=== PATIENT | female | born 1975 | race Caucasian/White ===

== ENCOUNTER 2017-01-09 14:53 | Emergency (ER) | payer OTHER ==
[~2017-01-09] VITALS: Ht 167.6 cm; Wt 52.0 kg
[~2017-01-09 14:53] MED LIST: ALLERGY INJECTIONS; ALPR-138 PO; BUDE.5I INH; BUPR-175 PO; CIPR500T2 PO; LORTS PO; PREN0.01 PO
[2017-01-09 14:59] VITALS: BP 118/65; PULSE 91; RESP 18; TEMP 98; O2SAT 100
[2017-01-09] MEDS ORDERED: XANA2TAB2 PO (15:48)
[2017-01-09] MEDS ORDERED: MONT4CHW2 CHEW (15:48)
[2017-01-09] MEDS ORDERED: TOPI25 PO (15:48)
[2017-01-09] MEDS ORDERED: BUPR150CR PO (15:48)
[2017-01-09] MEDS ORDERED: FLUT1SPR5 EACH NARE (15:48)
[2017-01-09] MEDS ORDERED: [UNRECOGNIZED DRUG - CODE] PO (15:48)
[2017-01-09] MEDS ORDERED: SODIUM CHLORIDE 0.9% FLUSH 10 ML FLUSH IV FLUSH PRN (16:30)
--- NOTE | 2017-01-09 16:30 | PD ---
HPI . Abdominal pain Chief Complaint: Abdominal Pain Time Seen by Provider: 16:22 Travel History International Travel<30 days: No Contact w/Intl Traveler<30days: No Traveled to known affect area: No History of Present Illness HPI Patient presents with a chief complaint of abdominal pain. She is complaining with upper abdominal pain. Onset was a year ago. She has not noted any modifying factors. She rates the pain 8/10 and describes it as a bloating sensation. She reports gas. She also reports associated nausea and vomiting. No diarrhea or constipation. No fever. She has seen her PMD for same and the PMD recommended increased fiber in her diet. She reports compliance with that recommendation. PFSH Past Medical History Asthma: Yes Depression: Yes Cancer: No Diabetes: No Hepatitis: No Hiatal Hernia: Yes Medical other: Yes (pt states had pneumonia a couple of times) Respiratory: Yes (asthma) Thyroid Disease: No Tetanus Vaccination: > 5 Years Influenza Vaccination: Yes ?: Not LMP: 12/20/16 : 1 Para: 0 Miscarriage: 0 : 0 Past Surgical History Abdominal Surgery: Yes (right inquinal hernia repair) Oral Surgery: Yes (wisdom teeth removed) Other Surgery: Yes Social History Alcohol Use: No Tobacco Use: No Substance Use: No Allergies-Medications (Allergen,Severity, Reaction): Coded Allergies: No Known Allergies (Verified Adverse Reaction, Unknown, 01/09/17) Reported Meds & Prescriptions Reported Meds & Active Scripts Active Reported Flonase Nasal Marathon (Fluticasone Nasal Marathon) 50 Mcg/Act [place] 50 Mcg EACH NARE BID Singulair (Montelukast Sodium) 4 Mg Chew 4 Mg CHEW HS Cotempla Xr-Odt (Methylphenidate) 25.9 Mg Tab.rap.bp 25.9 Mg PO DAILY Wellbutrin SR 12 HR (Bupropion HCl) 150 Mg Tab 300 Mg PO Q12HR Xanax (Alprazolam) 2 Mg Tab 2 Mg PO Q8H PRN Topamax (Topiramate) 25 Mg Tab 25 Mg PO BID Review of Systems Except as stated in HPI: all other systems reviewed are Neg General / Constitutional: No: Fever, Chills Gastrointestinal: Positive: Nausea, Vomiting, Abdominal Pain, No: Diarrhea, Constipation Genitourinary: No: Urgency, Frequency, Dysuria Physical Exam Narrative GENERAL: Awake and alert and in no acute distress. SKIN: warm/dry. HEAD: Normocephalic. Atraumatic. EYES: Pupils equal and round. No scleral icterus. No injection or drainage. ENT: No nasal bleeding or discharge. Mucous membranes pink and moist. NECK: Trachea midline. Full range of motion without pain.. CARDIOVASCULAR: Regular rate and rhythm. RESPIRATORY: No accessory muscle use. Clear to auscultation. Breath sounds equal bilaterally. GASTROINTESTINAL: Abdomen soft. Nontender. Bowel sounds present. Nondistended. She has some voluntary guarding but does not guard when she is distracted. MUSCULOSKELETAL: No obvious deformities. NEUROLOGICAL: Awake and alert. No obvious cranial nerve deficits. Motor grossly within normal limits. Normal speech. PSYCHIATRIC: Appropriate mood and affect; insight and judgment normal. Data Data Last Documented VS Vital Signs Date Time Temp Pulse Resp B/P (MAP) Pulse Ox O2 Delivery O2 Flow Rate FiO2 01/09/17 14:59 98.0 91 18 118/65 (82) 100 Room Air Orders Orders Complete Blood Count With Diff (01/09/17 16:22) Comprehensive Metabolic Panel (01/09/17 16:22) Lipase (01/09/17 16:22) Urinalysis - C+S If Indicated (01/09/17 16:22) Abdomen, Flat & Upright (01/09/17 ) Iv Access Insert/Monitor (01/09/17 16:22) Sodium Chloride 0.9% Flush (Ns Flush) (01/09/17 16:30) MDM Medical Decision Making Medical Screen Exam Complete: Yes Emergency Medical Condition: Yes Differential Diagnosis Differential diagnosis of abdominal pain includes but is not limited to gastritis, pancreatitis, hepatitis, gastroenteritis, gallbladder disease, constipation, urinary retention, UTI, peptic ulcer disease, diverticulitis or appendicitis Narrative Course This patient presents complaining with upper abdominal pain for a year. I do not suspect an acute problem. Routine abdominal labs have been ordered as well as a flat and upright of the abdomen. She does not have a surgical abdomen. Therefore, CT has not been ordered. Diagnosis Primary Impression: Abdominal pain Qualified Codes: R10.13 - Epigastric pain Condition: Stable Minerva Mckoy MD Jan 09, 2017 16:30
--- NOTE | 2017-01-09 17:06 | RADRPT ---
EXAM DATE/TIME: 01/09/2017 16:51 [facility] COMPARISON: No previous studies available for comparison. INDICATIONS : Abdominal pain and vomting. MEDICAL HISTORY : None. SURGICAL HISTORY : None. ENCOUNTER: Initial ACUITY: 2 days PAIN SCORE: 8/10 LOCATION: Bilateral lower quadrant abdomen. FINDINGS: Supine and upright views of the abdomen were performed. The abdominal bowel gas pattern is normal. No air fluid levels are seen. No abnormal masses, calcifications, or organomegaly is seen. The visu alized lower lungs are clear. No evidence of free intraperitoneal gas. The osseous structures are u nremarkable. CONCLUSION: No acute disease. Ortega Tuttle MD FACR on January 09, 2017 at 17:05 Board Certified Radiologist. This report was verified electronically.
[2017-01-09] MEDS ORDERED: SODIUM CHLOR 0.9% 1000 ML INJ 1,000 ML IV SCH (17:27)
[2017-01-09] MEDS ORDERED: MORPHINE SULFATE 4 MG/ML INJ IV PUSH ONE (17:30)
[2017-01-09] MEDS ORDERED: ALUMINUM/MAGNESIUM/SIMETH 30 ML CUP PO ONE (17:30)
[2017-01-09] MEDS ORDERED: LIDOCAINE VISCOUS 2% SOLN 15 ML UDC PO ONE (17:30)
[2017-01-09] MEDS ORDERED: ONDANSETRON HCL 4 MG/2 ML VIAL IVP ONE (17:30)
--- NOTE | 2017-01-09 17:34 | PD ---
HPI Chief Complaint: Abdominal Pain Time Seen by Provider: 17:07 Travel History International Travel<30 days: No Contact w/Intl Traveler<30days: No Traveled to known affect area: No History of Present Illness HPI patient has had abdominal discomfort for a year now, has a follow up appointment with gi specialist but per patient she has not had a workup for this complaint (no ultrasound, no cat scan)....pt describes diffuse, crampy, 7/ 10 pain, sometimes relieved by belching/vomiting, but has not had any v/d/fever/ PFSH Past Medical History Asthma: Yes Depression: Yes Cancer: No Diabetes: No Hepatitis: No Hiatal Hernia: Yes Medical other: Yes (pt states had pneumonia a couple of times) Respiratory: Yes (asthma) Thyroid Disease: No Tetanus Vaccination: > 5 Years Influenza Vaccination: Yes ?: Not LMP: 12/20/16 : 1 Para: 0 Miscarriage: 0 : 0 Past Surgical History Abdominal Surgery: Yes (right inquinal hernia repair) Oral Surgery: Yes (wisdom teeth removed) Other Surgery: Yes Social History Alcohol Use: No Tobacco Use: No Substance Use: No Allergies-Medications (Allergen,Severity, Reaction): Coded Allergies: No Known Allergies (Verified Adverse Reaction, Unknown, 01/09/17) Reported Meds & Prescriptions Reported Meds & Active Scripts Active Reported Flonase Nasal Flushing (Fluticasone Nasal Flushing) 50 Mcg/Act Flushing 50 Mcg EACH NARE BID Singulair (Montelukast Sodium) 4 Mg Chew 4 Mg CHEW HS Cotempla Xr-Odt (Methylphenidate) 25.9 Mg Tab.rap.bp 25.9 Mg PO DAILY Wellbutrin SR 12 HR (Bupropion HCl) 150 Mg Tab 300 Mg PO Q12HR Xanax (Alprazolam) 2 Mg Tab 2 Mg PO Q8H PRN Topamax (Topiramate) 25 Mg Tab 25 Mg PO BID Review of Systems Except as stated in HPI: all other systems reviewed are Neg Gastrointestinal: Positive: Nausea, Abdominal Pain Physical Exam Narrative GENERAL: SKIN: Warm and dry. HEAD: Atraumatic. Normocephalic. EYES: Pupils equal and round. No scleral icterus. No injection or drainage. ENT: No nasal bleeding or discharge. Mucous membranes pink and moist. NECK: Trachea midline. No JVD. CARDIOVASCULAR: Regular rate and rhythm. RESPIRATORY: No accessory muscle use. Clear to auscultation. Breath sounds equal bilaterally. GASTROINTESTINAL: Abdomen soft, non-tender, nondistended. MUSCULOSKELETAL: Extremities without clubbing, cyanosis, or edema. No obvious deformities. NEUROLOGICAL: Awake and alert. No obvious cranial nerve deficits. Motor grossly within normal limits. Five out of 5 muscle strength in the arms and legs. Normal speech. PSYCHIATRIC: Appropriate mood and affect; insight and judgment normal. Data Data Last Documented VS Vital Signs Date Time Temp Pulse Resp B/P (MAP) Pulse Ox O2 Delivery O2 Flow Rate FiO2 01/09/17 18:10 15 01/09/17 14:59 98.0 91 118/65 (82) 100 Room Air Orders Orders Complete Blood Count With Diff (01/09/17 16:22) Comprehensive Metabolic Panel (01/09/17 16:22) Lipase (01/09/17 16:22) Urinalysis - C+S If Indicated (01/09/17 16:22) Abdomen, Flat & Upright (01/09/17 ) Iv Access Insert/Monitor (01/09/17 16:22) Sodium Chloride 0.9% Flush (Ns Flush) (01/09/17 16:30) Ct Abd/Pel W/O Iv Contrast (01/09/17 17:27) NPO (01/09/17 17:27) Morphine Inj (Morphine Inj) (01/09/17 17:30) Ondansetron Inj (Zofran Inj) (01/09/17 17:30) Sodium Chlor 0.9% 1000 Ml Inj (Ns 1000 M (01/09/17 17:27) Al-Mag Hy-Si 40-40-4 Mg/Ml Liq (Mag-Al P (01/09/17 17:30) Lidocaine 2% Viscous (Xylocaine 2% Visco (01/09/17 17:30) Labs Laboratory Tests Test 01/09/17 17:00 White Blood Count 7.5 TH/MM3 Red Blood Count 4.14 MIL/MM3 Hemoglobin 12.9 GM/DL Hematocrit 38.5 % Mean Corpuscular Volume 92.9 FL Mean Corpuscular Hemoglobin 31.1 PG Mean Corpuscular Hemoglobin Concent 33.5 % Red Cell Distribution Width 13.9 % Platelet Count 195 TH/MM3 Mean Platelet Volume 10.4 FL Neutrophils (%) (Auto) 55.9 % Lymphocytes (%) (Auto) 31.2 % Monocytes (%) (Auto) 10.8 % Eosinophils (%) (Auto) 1.6 % Basophils (%) (Auto) 0.5 % Neutrophils # (Auto) 4.2 TH/MM3 Lymphocytes # (Auto) 2.3 TH/MM3 Monocytes # (Auto) 0.8 TH/MM3 Eosinophils # (Auto) 0.1 TH/MM3 Basophils # (Auto) 0.0 TH/MM3 CBC Comment DIFF FINAL Differential Comment Urine Color LIGHT-YELLOW Urine Turbidity CLEAR Urine pH 6.5 Urine Specific [place] 1.003 Urine Protein NEG mg/dL Urine Glucose (UA) NEG mg/dL Urine Ketones NEG mg/dL Urine Occult Blood NEG Urine Nitrite NEG Urine Bilirubin NEG Urine Urobilinogen LESS THAN 2.0 MG/DL Urine Leukocyte Esterase NEG Urine WBC LESS THAN 1 /hpf Microscopic Urinalysis Comment CULT NOT INDICATED Blood Urea Nitrogen 14 MG/DL Creatinine 1.09 MG/DL Random Glucose 81 MG/DL Total Protein 7.1 GM/DL Albumin 3.6 GM/DL Calcium Level 8.9 MG/DL Alkaline Phosphatase 54 U/L Aspartate Amino Transf (AST/SGOT) 31 U/L Alanine Aminotransferase (ALT/SGPT) 33 U/L Total Bilirubin 0.4 MG/DL Sodium Level 139 MEQ/L Potassium Level 3.8 MEQ/L Chloride Level 109 MEQ/L Carbon Dioxide Level 21.9 MEQ/L Anion Gap 8 MEQ/L Estimat Glomerular Filtration Rate 55 ML/MIN Lipase 196 U/L [facility] Medical Decision Making Medical Screen Exam Complete: Yes Emergency Medical Condition: Yes Medical Record Reviewed: Yes Differential Diagnosis pancreatitis v appy v biliary colic v hepatitis v colitis v divertic Narrative Course pt has nonspecific symptoms that become generalized and so specific location to concentrate on, will get ct abd/pelvis r/o surgical findings on differential and if all neg will d/c and urged to followup with GI specialist Diagnosis Primary Impression: Abdominal pain Qualified Codes: R10.13 - Epigastric pain Additional Impression: ovarian cyst vs leiomyoma Patient Instructions: General Instructions, Ovarian Cyst (DC) Additional Instructions: keep your january appointment with your finance manager for further evaluation Scripts Ondansetron Odt (Zofran Odt) 4 Mg Tab 4 MG SL Q6HR Y for Nausea/Vomiting, #10 TAB 0 Refills Prov: Lightburn,Ryan Shadi MD 01/09/17 Codeine-Acetaminophen (Codeine-Acetaminophen) 30-300 mg Tab 1 TAB PO Q4H Y for PAIN, #10 TAB 0 Refills Prov: Ryan Saldivar MD 01/09/17 Disposition: 01 DISCHARGE HOME Condition: Stable Ryan Saldivar MD Jan 09, 2017 17:34
[2017-01-09 17:37] LABS: AUTOMATED NEUTROPHIL # 4.2 TH/MM3 (1.8-7.7); BASOPHIL % 0.5 % (0.0-2.0); EOSINOPHIL # 0.1 TH/MM3 (0-0.4); EOSINOPHIL % 1.6 % (0.0-4.0); HEMATOCRIT 38.5 % (35.0-46.0); HEMO FLAGS DIFF FINAL; LYMPH % 31.2 % (9.0-44.0); LYMPHOCYTE # 2.3 TH/MM3 (1.0-4.8); MEAN CELL VOLUME 92.9 FL (80.0-100.0); MEAN CORPUSCULAR HEMOGLOBIN 31.1 PG (27.0-34.0); MEAN CORPUSCULAR HGB CONC 33.5 % (32.0-36.0); MONO % 10.8 % (0.0-8.0); NEUT % 55.9 % (16.0-70.0); PLATELET COUNT 195 TH/MM3 (150-450); RED BLOOD COUNT 4.14 MIL/MM3 (4.00-5.30); RED CELL DISTRIBUTION WIDTH 13.9 % (11.6-17.2); WHITE BLOOD COUNT 7.5 TH/MM3 (4.0-11.0)
[2017-01-09 17:39] LABS: BLOOD, URINE NEG (NEG); GLUCOSE,URINE NEG (NEG); KETONE, URINE NEG (NEG); NITRITE,URINE NEG (NEG); PH, URINE 6.5 (5.0-8.5); URINE COLOR LIGHT-YELLOW (YELLW/STRAW)
[2017-01-09 17:48] LABS: COMMENT (UR) CULT NOT INDICATED; CULTURE IF INDICATED CULT NOT INDICATED
[2017-01-09 18:00] LABS: ALKALINE PHOSPHATASE 54 U/L (45-117); TOTAL BILIRUBIN ADULT 0.4 MG/DL (0.2-1.0)
[2017-01-09 18:04] LABS: ALT (GPT) 33 U/L (10-53); ANION GAP 8 MEQ/L (5-15); AST (GOT) 31 U/L (15-37); BICARBONATE 21.9 MEQ/L (21.0-32.0); BLOOD UREA NITROGEN 14 MG/DL (7-18); CHLORIDE 109 MEQ/L (98-107); GLOMERULAR FILTRATION RATE 55 ML/MIN (>89); POTASSIUM 3.8 MEQ/L (3.5-5.1); SODIUM (NA) 139 MEQ/L (136-145)
[2017-01-09 18:10] VITALS: RESP 15
--- NOTE | 2017-01-09 18:47 | RADRPT ---
EXAM DATE/TIME: 01/09/2017 17:50 [facility] COMPARISON: No previous studies available for comparison. INDICATIONS : Abdominal pain, nausea and vomiting. ORAL CONTRAST: No oral contrast ingested. RADIATION DOSE: 11.35 CTDIvol (mGy) MEDICAL HISTORY : Hernia, hiatal. SURGICAL HISTORY : hiatal hernia repair ENCOUNTER: Initial ACUITY: 1 day PAIN SCALE: 7/10 LOCATION: abdomen TECHNIQUE: Volumetric scanning of the abdomen and pelvis was performed. Using automated exposure control and ad justment of the mA and/or kV according to patient size, radiation dose was kept as low as reasonably achievable to obtain optimal diagnostic quality images. DICOM format image data is available electro nically for review and comparison. FINDINGS: LOWER LUNGS: The visualized lower lungs are clear. LIVER: There are several round low density masses in the liver measuring up to 2.3 cm. These are nonspecific on this noncontrast CT examination. SPLEEN: Normal size without lesion. PANCREAS: Within normal limits. KIDNEYS: Normal in size and shape. There is no mass, stone, or hydronephrosis. ADRENAL GLANDS: Within normal limits. VASCULAR: There is no aortic aneurysm. BOWEL/MESENTERY: The stomach, small bowel, and colon demonstrate no acute abnormality. There is no free intraperitone al air or fluid. ABDOMINAL WALL: Within normal limits. RETROPERITONEUM: There is no lymphadenopathy. BLADDER: No wall thickening or mass. There are calcifications seen in the pelvis posterior to the bladder like ly related to phleboliths. A definite ureteral stone is not clearly identified. REPRODUCTIVE: There is a 2.4 cm soft tissue mass seen adjacent to the left uterine fundus are present either a subs erosal leiomyoma or the left ovary. INGUINAL: There is no lymphadenopathy or hernia. MUSCULOSKELETAL: There appear to be pars defects at L5 with grade 1 anterior spondylolisthesis. CONCLUSION: 1. No renal stones or hydronephrosis is seen. There are multiple calcifications in the pelvis likely related to phleboliths. A definite ureteral stone is not confirmed. 2. Multiple low density masses in the liver. These are nonspecific on this noncontrast CT examination . Statistically, they likely represent cysts or hemangiomas. 3. 2.4 cm soft tissue mass seen adjacent to the left uterine fundus representing either a subserosal leiomyoma or the left ovary in this region. 4. Suspected pars defects of L5 with grade 1 anterior spondylolisthesis. Salomon Trimble MD on January 09, 2017 at 18:39 Board Certified Radiologist. This report was verified electronically.
[2017-01-09] MEDS ORDERED: CODE30TA2 PO (19:15)
[2017-01-09] MEDS ORDERED: ZOFR4TAB3 SL (19:16)
== END 2017-01-09 19:49 | disposition home or self-care (01) ==
LOC: NEPD 14:53
DX: R10.13 Epigastric pain (principal); J45.909 Unspecified asthma, uncomplicated; F32.9 Major depressive disorder, single episode, unspecified
CPT/HCPCS: 74020; 74176; 80053; 81001; 83690; 85025; 96374; 96375; 99285; J2270; J2405; J7030